=== PATIENT | female | born 1995 | race Two or more races ===

== ENCOUNTER 2025-04-19 14:52 | Inpatient (IN) | payer MEDICAID, SELFPAY ==
[2025-04-19 14:57] VITALS: RESP 18; TEMP 36.4
[2025-04-19 15:24] VITALS: BP 108/59; PULSE 90
[2025-04-19 15:25] VITALS: BMI 29.7
--- NOTE | 2025-04-19 16:22 | XR_ITS ---
Examination: age Limited Technique: Limited sonographic images pelvis Indications: Labor induction today. presentation. Findings: Viable intrauterine gestation cephalic presentation. spine maternal right. Cardiac motion 150 BPM. Amniotic fluid index 7.3 cm. Estimated weight 3692 g. Estimated gestational age 39 weeks 3 days Impression: Viable intrauterine gestation cephalic presentation
[2025-04-19 17:09] LABS: Basophils # (Auto) 0.1 Thou/mm3 (0.0-0.2); Basophils % (Auto) 1 % (0-2.5); Eosinophils # (Auto) 0.2 Thou/mm3 (0.0-0.5); Eosinophils % (Auto) 2 % (0-10); Hematocrit 39.3 % (36.0-46.0); Hemoglobin 13.4 g/dL (12.0-16.0); Immature Granulocytes Auto 0.07 Thou/mm3 (0.00-0.00); Lymphocytes # (Auto) 1.9 Thou/mm3 (1.0-4.8); Lymphocytes % (Auto) 19 % (10-50); Mean Corpuscular HGB Conc 34.1 g/dl (31.0-37.0); Mean Corpuscular Hemoglobin 32.9 pg (25.0-35.0); Mean Corpuscular Volume 97 fL (80-100); Monocytes # (Auto) 0.8 Thou/mm3 (0.0-0.8); Monocytes % (Auto) 8 % (0-12); Neutrophils # (Auto) 7.0 Thou/mm3 (1.8-7.7); Neutrophils % (Auto) 70 % (37-80); Nucleated Red Blood Cell # 0.00 Thou/mm3 (0.00-0.00); Nucleated Red Blood Cell % 0 /100 WBC (0); Platelet Count 249 Thou/mm3 (140-440); RDW Standard Deviation 47.1 fL (36.4-46.3); Red Blood Count 4.07 Miln/mm3 (4.00-5.20); White Blood Count 10.0 Thou/mm3 (3.6-11.0)
[2025-04-19 17:46] LABS: Syphilis Nonreactive (Nonreactive)
[2025-04-19 18:15] VITALS: BP 112/70; PULSE 79; RESP 16; TEMP 36.6
[2025-04-19 18:59] VITALS: BP 115/71; PULSE 81
[2025-04-19 20:00] VITALS: TEMP 36.9
[2025-04-19 22:00] VITALS: BP 110/60; PULSE 67
[2025-04-20] VITALS (36 sets, daily range): BP systolic 99–136; BP diastolic 53–77; PULSE 58–155; RESP 16–20; TEMP 36.6–36.8; O2SAT 98
--- NOTE | 2025-04-20 07:10 | PD.LDPN ---
Documentation for date of: 04/20/25 OB Labor Progress Note Pain Control Comments: None Pelvic Exam Dilation (cm): 2 Effacement (%): 60 station: -3 Amniotic membrane status: Intact Comments: Per RN exam at 0650 Contractions Monitor mode: External Contraction frequency: 1-4 Contraction pattern: Coupling Contraction intensity: Moderate Status status: Category l Assessment and Plan Comments: Induction on going Cytotec 50mcg po q4h until Dee's 8
--- NOTE | 2025-04-20 07:36 | ESHP_ITS ---
RE: SEAN CARBAJAL : 1995 DATE OF ADMISSION: 04/19/2025 HISTORY OF PRESENT ILLNESS: This is a 29-year-old 4 para 3-0-0-3 with due date of 04/12/2025 with intrauterine at 41 weeks and 0 days on 04/19/2025, who presents for induction of labor for postdates. The patient has care with [facility], which was uncomplicated. She reports occasional contraction. She denies any leaking or bleeding. She reports normal movement. MEDICATION: multivitamin 1 p.o. daily. SOCIAL HISTORY: She denies any alcohol or drug use or smoking. PAST MEDICAL HISTORY: Denies. FAMILY HISTORY: Ovarian cancer, uterine cancer, depression, anxiety, diabetes, migraine headaches, hypertension, heart disease, and stroke. OBSTETRIC HISTORY: Three previous full-term normal vaginal deliveries without complications. PAST SURGICAL HISTORY: Denies. ALLERGIES: NO KNOWN DRUG ALLERGIES. REVIEW OF SYSTEMS: She denies any chest pain, palpitations, cough, fever, shortness of breath or lower extremity pain. She denies any headache, change in vision or right upper quadrant pain. PHYSICAL EXAMINATION: VITAL SIGNS: Blood pressure 119/69, heart rate 88, respirations 18, temperature is 98.6, and weight 178 pounds. HEENT: Oropharynx and sclerae are clear. LUNGS: Clear to auscultation bilaterally. HEART: Regular rate and rhythm. ABDOMEN: Gravid term size consistent with estimated weight 8.5 pounds. PELVIC: See RN notes. EXTREMITIES: Nontender. SKIN: No gross rashes or lesions. NEUROLOGIC: No focal deficit. ASSESSMENT AND PLAN: Intrauterine at 41 weeks and 0 days on 04/19/2025, induction of labor, postdates. Anticipate spontaneous vaginal delivery. Informed consent was obtained. The patient is made aware of the risks, complications, alternatives, and benefits of operative vaginal delivery and delivery and agrees with these modes of delivery if indicated. DT: 15:00:01 TT: 15:56:00 Ref: [id number] - TID: [id number]
[2025-04-20] MEDS: RINGERS LACTATED 1000 ML 1,000 ML 100 ML IV (09:09)
[2025-04-20] MEDS: OXYTOCIN in NS 20 units 20 UNIT/1,000 ML BAG 125 UNIT IV (09:48)
[2025-04-20] MEDS: BENZO/LANO/ALOE (Dermoplast) 60 GM CAN 1 SPRAY TOP (09:58)
--- NOTE | 2025-04-20 09:58 | PD.LDDS ---
DS: Providers Provider Date of admission: 04/19/25 14:52 Primary care physician: Physician No Primary/Family Admitting Provider: Suhas Paez MD Attending Provider on Admission: Suhas Paez MD Attending Provider on DC: Suhas Paez MD Discharging Provider: Suhas Paez MD DS: Diagnosis Problem List Completed Was Problem List Reviewed/Reconciled?: Yes Summary/Hosp Course Peripartum Data Delivery Method: Normal Vaginal Delivery Episiotomy Description: None Time Spent with Patient Time attestation: Total time spent providing and/or coordinating discharge services: Exam Vital Signs Temp Pulse Resp BP 98.3 F 93 20 112/71 04/20/25 07:40 04/20/25 09:54 04/20/25 07:40 04/20/25 09:54 Discharge Plan Plan Patient Disposition: HOME (Self Care) Patient condition on transfer: Stable Prescriptions/Referrals Prescriptions/Med Rec: New ibuprofen 600 mg tablet 600 mg PO QID PRN (Reason: pain) Qty: 30 0RF Continued PNV CMB#95/FERROUS FUMARATE/FA ( MULTIVITAMINS TABLET) 1 EACH tablet 1 tab PO QDAY Qty: 0 Referrals: No Primary/Family,Physician [Primary Care Provider] Patient/Caregiver Discharge Instructions Discharge Activity: activity as tolerated Other Discharge Activity Instructions:: Follow up office 6 weeks. Print Language: Amharic Stand Alone Forms: Drea Award Info., Patient Portal Info Letter Discharge Order Discharge Orders: Discharge (Routine); Ordered 04/21/25 Ordered By: Suhas Paez Planned Discharge Date 04/21/25
[2025-04-20] MEDS: IBUPROFEN TAB 400 MG TABLET 800 MG PO ×2 (10:00→20:17)
[2025-04-20 17:20] LABS: Basophils # (Auto) 0.1 Thou/mm3 (0.0-0.2); Basophils % (Auto) 0 % (0-2.5); Eosinophils # (Auto) 0.1 Thou/mm3 (0.0-0.5); Eosinophils % (Auto) 1 % (0-10); Hematocrit 39.1 % (36.0-46.0); Hemoglobin 13.4 g/dL (12.0-16.0); Immature Granulocytes Auto 0.09 Thou/mm3 (0.00-0.00); Lymphocytes # (Auto) 2.1 Thou/mm3 (1.0-4.8); Lymphocytes % (Auto) 13 % (10-50); Mean Corpuscular HGB Conc 34.3 g/dl (31.0-37.0); Mean Corpuscular Hemoglobin 33.3 pg (25.0-35.0); Mean Corpuscular Volume 97 fL (80-100); Monocytes # (Auto) 1.3 Thou/mm3 (0.0-0.8); Monocytes % (Auto) 8 % (0-12); Neutrophils # (Auto) 12.9 Thou/mm3 (1.8-7.7); Neutrophils % (Auto) 78 % (37-80); Nucleated Red Blood Cell # 0.00 Thou/mm3 (0.00-0.00); Nucleated Red Blood Cell % 0 /100 WBC (0); Platelet Count 213 Thou/mm3 (140-440); RDW Standard Deviation 45.7 fL (36.4-46.3); Red Blood Count 4.03 Miln/mm3 (4.00-5.20); White Blood Count 16.4 Thou/mm3 (3.6-11.0)
[2025-04-21] VITALS: BP 116/70; PULSE 80; RESP 18; TEMP 36.8; O2SAT 98
[2025-04-21 04:00] VITALS: BP 107/66; PULSE 68; RESP 16; TEMP 36.7; O2SAT 96
[2025-04-21 08:00] VITALS: BP 107/67; PULSE 72; RESP 16; TEMP 36.7; O2SAT 97
--- NOTE | 2025-04-21 08:27 | ESPR_ITS ---
RE: SEAN CARBAJAL : 1995 DATE OF SERVICE: 04/21/2025 SUBJECTIVE: day #1, the patient denies any problem or complaint. She is voiding and ambulating and tolerating a regular diet and passing flatus. She denies any excessive vaginal bleeding. She denies any dizziness or lightheadedness. She denies any chest pain, palpitations, shortness of breath or lower extremity pain. LABORATORY DATA: Hemoglobin predelivery is 13.4, post delivery is 13.4. ASSESSMENT: day #1, status post spontaneous vaginal delivery. PLAN: Discharge home when baby is cleared. Discharge instructions given. Follow up in the office in 6 weeks. DT: 07:30:26 TT: 08:25:00 Ref: [id number] - TID: [id number]
[2025-04-21 12:00] VITALS: BP 115/77; PULSE 72; RESP 17; TEMP 36.3; O2SAT 98
--- NOTE | 2025-06-16 13:01 | PD.LDDELS ---
Data (Samano) Data Hx Section: No : 4 Term: 2 : 0 Livin Abortions: Spontaneous & Theraputic: 0 Delivery Data (Samano) Labor Data Initiation of labor: Spontaneous Induction/Augmentation Agent: Cytotec-PO ROM date: 04/20/25 ROM time: 08:50 Amniotic membrane rupture type: Spontaneous Amniotic fluid description: Clear Delivery Data Onset of labor date: 04/20/25 Onset of labor time: 08:50 Complete dilation date: 04/20/25 Complete dilation time: 09:38 delivery date: 04/20/25 [place] delivery time: 09:42 Placenta delivery date: 04/20/25 Placenta delivery time: 09:51 Stage 1 total time: Labor - Stage 1 Duration 48 minutes Delivered by: Geiling Delivery nurse: Hermila Neworn nurse: Demetrius Material Expediter at delivery: No Support person(s) at delivery: FOB Delivery Method Delivery method: Normal Vaginal Delivery Presentation: Vertex Anesthesia Type Anesthesia Type: None Placenta Placenta delivery description: Spontaneous Cord blood sent to lab: Yes cord blood collection: Cord Blood Type Episiotomy Episiotomy description: None Umbilical Cord cord description: 3 Vessels [place] Data (Samano) [place] Data order: 1 's gender: Male Identification band number: [id number] weight (gms): 8 lb 0.574 oz Weight (pounds): 8 lbs and 0.6 ozs [place] length: 20.47 in 1 minute: 9 5 minutes: 9
== END 2025-04-21 14:42 | disposition home or self-care (01) | DRG 560 ==
LOC: S4SX 04-20 13:54 → S4NX 04-20 17:06
PROVIDERS: Admitting Provider Specialist; Visit Provider Obstetrics & Gynecology
DX: O48.0 Post-term pregnancy (principal); Z3A.41 41 weeks gestation of pregnancy; Z37.0 Single live birth
CPT/HCPCS: 36415; 59409; 76815; 85025; 86780; 86850; 86900; 86901; 94762; J2590; J7120; A9270